=== PATIENT | female | born 1965 | race Caucasian/White ===

== ENCOUNTER → 2018-10-14 | Outpatient (CLI) | payer BC ==
--- NOTE | 2018-10-15 07:59 | US ---
EXAM DESCRIPTION: Soft Tissue,Head/Neck CLINICAL HISTORY: FRONTAL LOBE SKIN NODULE COMPARISON: None. IMPRESSION: Sonographic images of the area of palpable abnormality described as midline forehead soft tissue shows heterogeneous, hypoechoic nonvascular area measuring 2.1 x 0.3 x 0.8 cm most likely representing complex fluid collection versus poorly vascular soft tissue lesion. Electronically signed by: Pedro Escobar MD 10/15/2018 7:58 AM NURSING MANAGER
== END ==
LOC: US 16:28
PROVIDERS: ATTEND Nurse Practitioner Family
DX: R22.9 Localized swelling, mass and lump, unspecified (principal)